=== PATIENT | female | born 1985 | race Caucasian/White ===

== ENCOUNTER 2016-07-20 08:48 | Emergency (ER) | payer OTHER ==
[~2016-07-20] VITALS: Wt 54.4 kg
[~2016-07-20 08:48] MED LIST: AMOXICILLIN500 MG PO; AMOXIL500 MG PO; ANAPROX DS550 MG PO; ATIVAN1 MG PO; AUGMENTIN 875 M1 TAB PO; BACTRIM DS 8001 TA1 PO; CEPHALEXIN500 M1 PO; CIPROFLOXACIN500 MG PO; CLARITIN10 MG PO; DIFLUCAN150 MG PO; DOXYCYCLINE HY100 M3 PO; FIORICET 325 MG1 TAB PO; KEFLEX500 MG PO; MACROBID100 M1 PO; MOTRIN800 MG PO; Motrin,Rufen800 MG PO; NEURONTIN100 MG PO; NKHM; PHENERGAN25 M1 PO; PYRIDIUM200 MG PO; TRAMADOL HCL50 MG PO; TRAZODONE50 MG PO; TRIMOX500 MG PO; VALIUM10 MG PO; VALIUM2 MG; VISTARIL25 M1 PO; VISTARIL25 M2 PO; XANAX0.5 MG PO; ZOFRAN4 MG PO; ZOLOFT20 MG/ML; ZOLOFT50 MG PO
[2016-07-20 09:08] VITALS: BP 114/72
[2016-07-20] MEDS ORDERED: CEPHALEXIN500 M1 PO (10:08)
[2016-07-20] MEDS ORDERED: TRIAMCINOLONE AC0.1% T (10:08)
[2016-07-20] MEDS ORDERED: PREDNISONE10 MG PO (10:08)
== END 2016-07-20 10:39 | disposition home or self-care (01) ==
LOC: ED 08:48
DX: K65.1 Peritoneal abscess (principal); L25.9 Unspecified contact dermatitis, unspecified cause; F17.200 Nicotine dependence, unspecified, uncomplicated

== ENCOUNTER 2016-10-03 17:03 | Emergency (ER) | payer OTHER ==
[~2016-10-03] VITALS: Wt 54.4 kg
[~2016-10-03 17:03] MED LIST changes: +PREDNISONE10 MG PO; +TRIAMCINOLONE AC0.1% T
[2016-10-03 18:20] LABS: BASO # 0.1 10*3/uL (0.0-0.1); BASO % 0.5 % (0.0-1.0); EOS # 0.5 10*3/uL (0.0-0.4); HEMATOCRIT 41.1 % (37.0-47.0); HEMOGLOBIN 13.8 g/dl (12.0-16.0); LYMPH % 30.1 % (27.0-41.0); MEAN CELL VOLUME 90.1 fl (81.0-99.0); MEAN CORPUSCULAR HGB 30.3 pg (27.0-31.0); MEAN CORPUSCULAR HGB CONC 33.6 g/dl (33.0-37.0); MEAN PLATELET VOLUME 11.3 fl (9.6-12.3); MONO # 0.7 10*3/uL (0.1-1.0); MONO % 7.3 % (3.0-9.0); NEUT # 5.7 10*3/uL (2.3-7.9); NEUT % 56.8 % (47.0-73.0); PLATELET COUNT AUTOMATED 225 10*3/uL (130-400); RED BLOOD COUNT 4.56 10*6/uL (4.10-5.10); RED CELL DISTRI WIDTH 14.4 % (0-14.5); WHITE BLOOD COUNT 10.1 10*3/uL (4.8-10.8)
[2016-10-03 18:36] LABS: ALBUMIN 3.7 gm/dl (3.1-4.5); ALKALINE PHOSPHATASE 85 U/L (45-117); BILIRUBIN, TOTAL 0.2 mg/dl (0.2-1.0); BUN 5 mg/dl (7-24); CARBON DIOXIDE 26 mmol/L (21-32); CHLORIDE 109 mmol/L (98-107); EST GLOM FILT AFRICAN AMERICAN > 60 ml/min; GLUCOSE 91 mg/dL (65-99); POTASSIUM 3.5 mmol/L (3.5-5.1); SGOT/AST 13 IU/L (3-35); SGPT/ALT 26 U/L (12-78); SODIUM 145 mmol/L (136-145); TOTAL PROTEIN 6.9 gm/dL (6.4-8.2)
== END 2016-10-03 19:04 | disposition home or self-care (01) ==
LOC: ED 17:03
PROVIDERS: Physician Assistant
DX: B27.90 Infectious mononucleosis, unspecified without complication (principal); F17.200 Nicotine dependence, unspecified, uncomplicated; Z79.899 Other long term (current) drug therapy

== ENCOUNTER 2017-02-24 21:44 | Emergency (ER) | payer OTHER ==
[~2017-02-24] VITALS: Ht 157.4 cm; Wt 56.7 kg
[2017-02-24 21:48] VITALS: BP 122/80
[2017-02-24] MEDS ORDERED: NAPROSYN500 MG PO (21:57)
[2017-02-24] MEDS ORDERED: KEFLEX500 M1 PO (21:57)
== END 2017-02-24 22:40 | disposition home or self-care (01) ==
LOC: ED 21:44
DX: S91.032A Puncture wound without foreign body, left ankle, initial encounter (principal); R03.0 Elevated blood-pressure reading, without diagnosis of hypertension; F17.200 Nicotine dependence, unspecified, uncomplicated; Z23 Encounter for immunization; Z88.8 Allergy status to other drugs, medicaments and biological substances; W10.9XXA Fall (on) (from) unspecified stairs and steps, initial encounter; Y93.89 Activity, other specified; Y92.89 Other specified places as the place of occurrence of the external cause; Y99.8 Other external cause status

== ENCOUNTER 2017-03-17 21:57 | Emergency (ER) | payer OTHER ==
[~2017-03-17] VITALS: Ht 157.4 cm; Wt 59.0 kg
[~2017-03-17 21:57] MED LIST changes: +KEFLEX500 M1 PO; +NAPROSYN500 MG PO
[2017-03-17 22:01] VITALS: BP 144/89
[2017-03-17 22:49] LABS: BASO # 0.1 10*3/uL (0.0-0.1); BASO % 0.4 % (0.0-1.0); EOS # 0.2 10*3/uL (0.0-0.4); EOS % 1.9 % (1.0-4.0); HEMOGLOBIN 14.4 g/dl (12.0-16.0); LYMPH # 2.5 10*3/uL (1.3-4.4); LYMPH % 20.3 % (27.0-41.0); MEAN CELL VOLUME 89.8 fl (81.0-99.0); MEAN CORPUSCULAR HGB 30.1 pg (27.0-31.0); MEAN CORPUSCULAR HGB CONC 33.5 g/dl (33.0-37.0); MEAN PLATELET VOLUME 10.9 fl (9.6-12.3); MONO # 0.6 10*3/uL (0.1-1.0); NEUT % 72.1 % (47.0-73.0); PLATELET COUNT AUTOMATED 307 10*3/uL (130-400); RED BLOOD COUNT 4.79 10*6/uL (4.10-5.10); RED CELL DISTRI WIDTH 14.6 % (0-14.5); WHITE BLOOD COUNT 12.5 10*3/uL (4.8-10.8)
[2017-03-17 23:04] LABS: ALKALINE PHOSPHATASE 125 U/L (45-117); BUN 3 mg/dl (7-24); CHLORIDE 107 mmol/L (98-107); CREATININE 0.75 mg/dL (0.55-1.02); POTASSIUM 3.1 mmol/L (3.5-5.1); SGOT/AST 15 IU/L (3-35); SGPT/ALT 16 U/L (12-78); SODIUM 141 mmol/L (136-145)
[2017-03-17] MEDS ORDERED: MEDROL DOSEPAK4 MG PO (23:14)
[2017-03-17] MEDS ORDERED: NORCO 5-325 TA1 EACH PO (23:14)
[2017-03-17] MEDS ORDERED: CLINDAMYCIN HC300 MG PO (23:14)
== END 2017-03-17 23:42 | disposition home or self-care (01) ==
LOC: ED 21:57
PROVIDERS: Physician Assistant
DX: L02.811 Cutaneous abscess of head [any part, except face] (principal); F17.200 Nicotine dependence, unspecified, uncomplicated

== ENCOUNTER 2017-06-13 15:38 | Emergency (ER) | payer OTHER ==
[~2017-06-13] VITALS: Wt 64.4 kg
[~2017-06-13 15:38] MED LIST changes: +CLINDAMYCIN HC300 MG PO; +MEDROL DOSEPAK4 MG PO; +NORCO 5-325 TA1 EACH PO
[2017-06-13 16:09] LABS: BILIRUBIN NEGATIVE (NEGATIVE); BLOOD 2+ (NEGATIVE); CLARITY CLEAR (CLEAR); COLOR YELLOW (YELLOW); GLUCOSE NEGATIVE (NEGATIVE); KETONE NEGATIVE (NEGATIVE); LEUKO ESTERASE 1+ (NEGATIVE); NITRITE NEGATIVE (NEGATIVE)
[2017-06-13 16:17] LABS: BACTERIA 1+; WBC 21-30 wbc/hpf (0-5)
[2017-06-13 16:36] LABS: HEMOGLOBIN 14.2 g/dl (12.0-16.0); MEAN CELL VOLUME 89.4 fl (81.0-99.0); MEAN CORPUSCULAR HGB 30.2 pg (27.0-31.0); MEAN CORPUSCULAR HGB CONC 33.8 g/dl (33.0-37.0); MEAN PLATELET VOLUME 11.4 fl (9.6-12.3); PLATELET COUNT AUTOMATED 182 10*3/uL (130-400); RED CELL DISTRI WIDTH 15.6 % (0-14.5); WHITE BLOOD COUNT 16.4 10*3/uL (4.8-10.8)
[2017-06-13 16:53] LABS: ALBUMIN 3.1 gm/dl (3.1-4.5); ALKALINE PHOSPHATASE 228 U/L (45-117); BUN 12 mg/dl (7-24); CHLORIDE 100 mmol/L (98-107); CREATININE 1.22 mg/dL (0.55-1.02); POTASSIUM 3.6 mmol/L (3.5-5.1); SGOT/AST 15 IU/L (3-35); SGPT/ALT 38 U/L (12-78); SODIUM 132 mmol/L (136-145)
[2017-06-13 17:01] LABS: PLATELET SUFFICIENCY NORMAL (NORMAL); POLYCHROMASIA SLIGHT; TOTAL CELLS COUNTED 100 #CELLS
[2017-06-13 19:19] VITALS: BP 104/66
[2017-06-13] MEDS ORDERED: CIPRO250 MG PO (19:21)
== END 2017-06-13 19:30 | disposition home or self-care (01) ==
LOC: ED 15:38
PROVIDERS: Nurse Practitioner Family
DX: N39.0 Urinary tract infection, site not specified (principal); F17.200 Nicotine dependence, unspecified, uncomplicated; Z79.899 Other long term (current) drug therapy

== ENCOUNTER 2018-11-18 21:49 | Emergency (ER) | payer OTHER ==
[~2018-11-18] VITALS: Ht 157.4 cm; Wt 61.2 kg
[~2018-11-18 21:49] MED LIST changes: +CIPRO250 MG PO
[2018-11-18 21:50] VITALS: BP 153/96
[2018-11-18 22:22] LABS: BILIRUBIN NEGATIVE (NEGATIVE); BLOOD NEGATIVE (NEGATIVE); CLARITY CLEAR (CLEAR); COLOR YELLOW (YELLOW); GLUCOSE NEGATIVE (NEGATIVE); KETONE NEGATIVE (NEGATIVE); LEUKO ESTERASE NEGATIVE (NEGATIVE); NITRITE NEGATIVE (NEGATIVE); PH 6.5 (5.0-9.0); SPECIFIC GRAVITY <= 1.005 (1.005-1.030); UROBILINOGEN 0.2 E.U./dl (0.2-1.0)
[2018-11-18 22:23] LABS: BASO % 0.3 % (0.0-1.0); EOS # 0.3 10*3/uL (0.0-0.4); EOS % 1.7 % (1.0-4.0); HEMATOCRIT 39.2 % (37.0-47.0); HEMOGLOBIN 13.9 g/dl (12.0-16.0); LYMPH # 3.3 10*3/uL (1.3-4.4); LYMPH % 22.5 % (27.0-41.0); MEAN CELL VOLUME 92.5 fl (81.0-99.0); MEAN CORPUSCULAR HGB 32.8 pg (27.0-31.0); MEAN CORPUSCULAR HGB CONC 35.5 g/dl (33.0-37.0); MEAN PLATELET VOLUME 11.3 fl (9.6-12.3); MONO # 0.9 10*3/uL (0.1-1.0); PLATELET COUNT AUTOMATED 251 10*3/uL (130-400); RED BLOOD COUNT 4.24 10*6/uL (4.10-5.10); RED CELL DISTRI WIDTH 13.6 % (0-14.5); WHITE BLOOD COUNT 14.5 10*3/uL (4.8-10.8)
[2018-11-18 22:34] LABS: EPITHELIAL CELLS 25-30
[2018-11-18 22:35] LABS: RBC 0-2 rbc/hpf (0-2)
[2018-11-18 22:44] LABS: ALBUMIN 3.5 gm/dl (3.1-4.5); ALKALINE PHOSPHATASE 71 U/L (45-117); BUN 8 mg/dl (7-24); CHLORIDE 106 mmol/L (98-107); CREATININE 0.67 mg/dL (0.55-1.02); LIPASE 121 U/L (73-393); POTASSIUM 3.5 mmol/L (3.5-5.1); SGOT/AST 19 IU/L (3-35); SGPT/ALT 19 U/L (12-78); SODIUM 139 mmol/L (136-145); TOTAL PROTEIN 7.1 gm/dL (6.4-8.2)
== END 2018-11-19 02:16 | disposition home or self-care (01) ==
LOC: ED 21:49
PROVIDERS: Emergency Medicine
DX: O26.891 Other specified pregnancy related conditions, first trimester (principal); R10.2 Pelvic and perineal pain; M54.5 Low back pain; R35.0 Frequency of micturition; F17.200 Nicotine dependence, unspecified, uncomplicated; Z3A.11 11 weeks gestation of pregnancy; Z79.899 Other long term (current) drug therapy; Z87.442 Personal history of urinary calculi

== ENCOUNTER 2018-12-05 13:16 | Emergency (ER) | payer OTHER ==
[~2018-12-05] VITALS: Ht 157.4 cm; Wt 62.6 kg
[2018-12-05 13:17] VITALS: BP 143/84
[2018-12-05 14:11] LABS: BASO % 0.2 % (0.0-1.0); EOS # 0.1 10*3/uL (0.0-0.4); EOS % 0.8 % (1.0-4.0); HEMATOCRIT 37.7 % (37.0-47.0); HEMOGLOBIN 13.1 g/dl (12.0-16.0); LYMPH # 1.8 10*3/uL (1.3-4.4); LYMPH % 12.3 % (27.0-41.0); MEAN CELL VOLUME 92.9 fl (81.0-99.0); MEAN CORPUSCULAR HGB 32.3 pg (27.0-31.0); MEAN CORPUSCULAR HGB CONC 34.7 g/dl (33.0-37.0); MEAN PLATELET VOLUME 11.5 fl (9.6-12.3); MONO # 0.5 10*3/uL (0.1-1.0); MONO % 3.6 % (3.0-9.0); NEUT # 11.9 10*3/uL (2.3-7.9); NEUT % 82.7 % (47.0-73.0); PLATELET COUNT AUTOMATED 243 10*3/uL (130-400); RED BLOOD COUNT 4.06 10*6/uL (4.10-5.10); RED CELL DISTRI WIDTH 13.6 % (0-14.5); WHITE BLOOD COUNT 14.4 10*3/uL (4.8-10.8)
== END 2018-12-05 15:50 | disposition home or self-care (01) ==
LOC: ED 13:16
PROVIDERS: Emergency Medicine
DX: O9A.211 Injury, poisoning and certain other consequences of external causes complicating pregnancy, first trimester (principal); R10.9 Unspecified abdominal pain; Z3A.12 12 weeks gestation of pregnancy; Z79.2 Long term (current) use of antibiotics; Z79.899 Other long term (current) drug therapy; V49.59XA Passenger injured in collision with other motor vehicles in traffic accident, initial encounter; Y93.89 Activity, other specified; Y92.488 Other paved roadways as the place of occurrence of the external cause; Y99.8 Other external cause status

== ENCOUNTER 2020-11-01 00:18 | Inpatient (IN) | payer OTHER ==
[~2020-11-01] VITALS: Ht 157.4 cm; Wt 65.9 kg
[2020-11-01] VITALS (8 sets, daily range): BP systolic 102–120; BP diastolic 60–78
[2020-11-01 00:55] LABS: HEMATOCRIT 40.3 % (37.0-47.0); MEAN CELL VOLUME 87.2 fl (81.0-99.0); MEAN CORPUSCULAR HGB 29.2 pg (27.0-31.0); MEAN CORPUSCULAR HGB CONC 33.5 g/dl (33.0-37.0); MEAN PLATELET VOLUME 11.2 fl (9.6-12.3); PLATELET COUNT AUTOMATED 183 10*3/uL (130-400); RED BLOOD COUNT 4.62 10*6/uL (4.10-5.10); RED CELL DISTRI WIDTH 15.8 % (0-14.5); WHITE BLOOD COUNT 19.1 10*3/uL (4.8-10.8)
[2020-11-01 01:18] LABS: ALBUMIN 2.9 gm/dl (3.1-4.5); ALKALINE PHOSPHATASE 216 U/L (45-117); BUN 7 mg/dl (7-24); CHLORIDE 106 mmol/L (98-107); CREATININE 1.15 mg/dL (0.55-1.02); POTASSIUM 2.7 mmol/L (3.5-5.1); SGOT/AST 16 IU/L (3-35); SGPT/ALT 40 U/L (12-78); SODIUM 137 mmol/L (136-145); TOTAL PROTEIN 7.1 gm/dL (6.4-8.2)
[2020-11-01 01:21] LABS: TOTAL CELLS COUNTED 100 #CELLS
[2020-11-01 01:22] LABS: OVALOCYTES FEW
[2020-11-01 01:23] LABS: BURR CELLS FEW; PLATELET SUFFICIENCY NORMAL (NORMAL)
[2020-11-01 02:02] LABS: BILIRUBIN 2+ (Negative); CLARITY Turbid (Clear); COLOR Red (Yellow); GLUCOSE Negative (Negative); KETONE Trace (Negative)
[2020-11-01 02:03] LABS: BLOOD 3+ (Negative)
[2020-11-01 02:04] LABS: NITRITE Positive (Negative)
[2020-11-01 02:05] LABS: LEUKO ESTERASE Trace (Negative); RBC TNTC rbc/hpf (0-2)
[2020-11-01 04:41] LABS: BASO % 0.2 % (0.0-1.0); EOS # 0.1 10*3/uL (0.0-0.4); EOS % 0.7 % (1.0-4.0); HEMATOCRIT 35.3 % (37.0-47.0); LYMPH # 1.6 10*3/uL (1.3-4.4); LYMPH % 9.1 % (27.0-41.0); MEAN CELL VOLUME 87.6 fl (81.0-99.0); MEAN CORPUSCULAR HGB 29.3 pg (27.0-31.0); MEAN CORPUSCULAR HGB CONC 33.4 g/dl (33.0-37.0); MEAN PLATELET VOLUME 12.1 fl (9.6-12.3); MONO # 2.2 10*3/uL (0.1-1.0); MONO % 12.5 % (3.0-9.0); NEUT # 13.3 10*3/uL (2.3-7.9); NEUT % 76.9 % (47.0-73.0); PLATELET COUNT AUTOMATED 164 10*3/uL (130-400); RED BLOOD COUNT 4.03 10*6/uL (4.10-5.10); RED CELL DISTRI WIDTH 15.8 % (0-14.5); WHITE BLOOD COUNT 17.3 10*3/uL (4.8-10.8)
[2020-11-01 05:07] LABS: BURR CELLS FEW; OVALOCYTES FEW; PLATELET SUFFICIENCY NORMAL (NORMAL); TOTAL CELLS COUNTED 100 #CELLS
[2020-11-01 05:11] LABS: ALBUMIN 2.3 gm/dl (3.1-4.5); ALKALINE PHOSPHATASE 200 U/L (45-117); BUN 7 mg/dl (7-24); CHLORIDE 112 mmol/L (98-107); CREATININE 0.99 mg/dL (0.55-1.02); POTASSIUM 3.3 mmol/L (3.5-5.1); SGOT/AST 15 IU/L (3-35); SGPT/ALT 32 U/L (12-78); SODIUM 140 mmol/L (136-145)
[2020-11-01] MEDS ORDERED: HYDROXYZINE HCL25 MG PO (05:20)
[2020-11-01] MEDS ORDERED: AMITRIPTYLINE25 MG PO (05:20)
[2020-11-01] MEDS ORDERED: BUPROPION HYDR150 M1 PO (05:21)
[2020-11-01] MEDS ORDERED: XANAX XR0.5 MG PO (05:21)
[2020-11-01] MEDS ORDERED: LATU40TA PO (05:35)
[2020-11-02 00:47] VITALS: BP 115/71
[2020-11-02 06:08] LABS: BUN 6 mg/dl (7-24); CHLORIDE 112 mmol/L (98-107); HEMATOCRIT 31.6 % (37.0-47.0); MEAN CELL VOLUME 88.8 fl (81.0-99.0); MEAN CORPUSCULAR HGB 29.5 pg (27.0-31.0); MEAN CORPUSCULAR HGB CONC 33.2 g/dl (33.0-37.0); MEAN PLATELET VOLUME 12.5 fl (9.6-12.3); PLATELET COUNT AUTOMATED 166 10*3/uL (130-400); POTASSIUM 3.7 mmol/L (3.5-5.1); RED BLOOD COUNT 3.56 10*6/uL (4.10-5.10); RED CELL DISTRI WIDTH 16.3 % (0-14.5); SODIUM 139 mmol/L (136-145)
[2020-11-02 06:58] LABS: TOTAL CELLS COUNTED 100 #CELLS
[2020-11-02 06:59] LABS: BURR CELLS FEW; PLATELET SUFFICIENCY NORMAL (NORMAL); TOXIC GRANULATION SLIGHT
[2020-11-02 08:00] VITALS: BP 93/64
[2020-11-02 12:00] VITALS: BP 101/60
[2020-11-02 16:00] VITALS: BP 117/81
[2020-11-02 20:00] VITALS: BP 129/79
[2020-11-03] VITALS: BP 134/83
[2020-11-03 06:13] LABS: BASO % 0.1 % (0.0-1.0); EOS # 0.2 10*3/uL (0.0-0.4); EOS % 1.6 % (1.0-4.0); LYMPH # 1.9 10*3/uL (1.3-4.4); LYMPH % 12.9 % (27.0-41.0); MEAN CORPUSCULAR HGB 29.5 pg (27.0-31.0); MEAN CORPUSCULAR HGB CONC 33.9 g/dl (33.0-37.0); MEAN PLATELET VOLUME 11.1 fl (9.6-12.3); MONO # 1.1 10*3/uL (0.1-1.0); MONO % 7.5 % (3.0-9.0); NEUT # 11.2 10*3/uL (2.3-7.9); NEUT % 76.8 % (47.0-73.0); PLATELET COUNT AUTOMATED 184 10*3/uL (130-400); RED BLOOD COUNT 3.22 10*6/uL (4.10-5.10); RED CELL DISTRI WIDTH 16.5 % (0-14.5); WHITE BLOOD COUNT 14.5 10*3/uL (4.8-10.8)
[2020-11-03 06:27] LABS: ALKALINE PHOSPHATASE 205 U/L (45-117); BUN 5 mg/dl (7-24); CHLORIDE 112 mmol/L (98-107); CREATININE 1.05 mg/dL (0.55-1.02); POTASSIUM 3.3 mmol/L (3.5-5.1); SGOT/AST 9 IU/L (3-35); SGPT/ALT 21 U/L (12-78); SODIUM 141 mmol/L (136-145); TOTAL PROTEIN 5.3 gm/dL (6.4-8.2)
[2020-11-03 08:00] VITALS: BP 100/64
[2020-11-03 12:00] VITALS: BP 140/85
[2020-11-03 16:00] VITALS: BP 127/76; BP 146/48
[2020-11-03 20:00] VITALS: BP 142/90
[2020-11-04] VITALS: BP 140/89
[2020-11-04 01:30] VITALS: BP 138/82
[2020-11-04 06:51] LABS: HEMATOCRIT 28.9 % (37.0-47.0); MEAN CELL VOLUME 87.3 fl (81.0-99.0); MEAN CORPUSCULAR HGB 29.6 pg (27.0-31.0); MEAN CORPUSCULAR HGB CONC 33.9 g/dl (33.0-37.0); MEAN PLATELET VOLUME 10.9 fl (9.6-12.3); PLATELET COUNT AUTOMATED 203 10*3/uL (130-400); RED BLOOD COUNT 3.31 10*6/uL (4.10-5.10); RED CELL DISTRI WIDTH 16.5 % (0-14.5); WHITE BLOOD COUNT 9.8 10*3/uL (4.8-10.8)
[2020-11-04 07:46] LABS: ALKALINE PHOSPHATASE 228 U/L (45-117); BUN 5 mg/dl (7-24); CHLORIDE 111 mmol/L (98-107); CREATININE 0.95 mg/dL (0.55-1.02); POTASSIUM 3.4 mmol/L (3.5-5.1); SGOT/AST 11 IU/L (3-35); SGPT/ALT 19 U/L (12-78); SODIUM 141 mmol/L (136-145); TOTAL PROTEIN 5.7 gm/dL (6.4-8.2)
[2020-11-04 07:54] LABS: PLATELET SUFFICIENCY NORMAL (NORMAL); TOTAL CELLS COUNTED 100 #CELLS
[2020-11-04 08:00] VITALS: BP 128/86
[2020-11-04 12:00] VITALS: BP 123/83
[2020-11-04 16:00] VITALS: BP 152/91
[2020-11-04 20:00] VITALS: BP 137/87
[2020-11-05] VITALS: BP 135/78
[2020-11-05 06:23] LABS: BASO % 0.2 % (0.0-1.0); CHLORIDE 112 mmol/L (98-107); EOS # 0.5 10*3/uL (0.0-0.4); HEMATOCRIT 32.2 % (37.0-47.0); LYMPH # 2.3 10*3/uL (1.3-4.4); LYMPH % 25.4 % (27.0-41.0); MEAN CELL VOLUME 87.5 fl (81.0-99.0); MEAN CORPUSCULAR HGB 29.3 pg (27.0-31.0); MEAN CORPUSCULAR HGB CONC 33.5 g/dl (33.0-37.0); MEAN PLATELET VOLUME 11.2 fl (9.6-12.3); MONO # 0.8 10*3/uL (0.1-1.0); MONO % 8.7 % (3.0-9.0); NEUT # 5.4 10*3/uL (2.3-7.9); NEUT % 59.5 % (47.0-73.0); POTASSIUM 3.2 mmol/L (3.5-5.1); RED BLOOD COUNT 3.68 10*6/uL (4.10-5.10); RED CELL DISTRI WIDTH 16.8 % (0-14.5); SODIUM 142 mmol/L (136-145)
[2020-11-05 06:25] LABS: PLATELET COUNT AUTOMATED 285 10*3/uL (130-400)
[2020-11-05 06:30] LABS: BUN 7 mg/dl (7-24); CREATININE 1.02 mg/dL (0.55-1.02)
[2020-11-05 08:00] VITALS: BP 129/90
[2020-11-05] MEDS ORDERED: SEPTDS PO (11:33)
[2020-11-05 12:00] VITALS: BP 126/82
[2020-11-05 16:00] VITALS: BP 138/90
== END 2020-11-05 17:50 | disposition home or self-care (01) | DRG 871 ==
LOC: ED 00:18 → EDHOLD 02:48 → 4E 02:48
PROVIDERS: Hospitalist; Internal Medicine; Registered Nurse; Student in an Organized Health Care Education/Training Program; ADMIT Student in an Organized Health Care Education/Training Program; ATTEND Student in an Organized Health Care Education/Training Program
PROC: 05HC33Z Insertion of Infusion Device into Left Basilic Vein, Percutaneous Approach (ICD-10-PCS; principal; 2020-11-02)
PROC: B54NZZA Ultrasonography of Left Upper Extremity Veins, Guidance (ICD-10-PCS; 2020-11-02)
DX: A41.9 Sepsis, unspecified organism (principal); N17.0 Acute kidney failure with tubular necrosis; E44.0 Moderate protein-calorie malnutrition; E87.2 Acidosis; N13.6 Pyonephrosis; E87.6 Hypokalemia; F41.9 Anxiety disorder, unspecified; N18.31 Chronic kidney disease, stage 3a; R31.9 Hematuria, unspecified; R65.20 Severe sepsis without septic shock; R73.9 Hyperglycemia, unspecified; B96.20 Unspecified Escherichia coli [E. coli] as the cause of diseases classified elsewhere; F17.200 Nicotine dependence, unspecified, uncomplicated; Z80.9 Family history of malignant neoplasm, unspecified; Z82.49 Family history of ischemic heart disease and other diseases of the circulatory system; Z79.899 Other long term (current) drug therapy; Z71.6 Tobacco abuse counseling; Z68.26 Body mass index [BMI] 26.0-26.9, adult

== ENCOUNTER 2020-11-14 14:09 | Emergency (ER) | payer OTHER ==
[~2020-11-14] VITALS: Wt 56.7 kg
[~2020-11-14 14:09] MED LIST changes: +AMITRIPTYLINE25 MG PO; +BUPROPION HYDR150 M1 PO; +HYDROXYZINE HCL25 MG PO; +LATU40TA PO; +SEPTDS PO; +XANAX XR0.5 MG PO
[2020-11-14 14:26] VITALS: BP 117/68
[2020-11-14] MEDS ORDERED: HYDROCODONE-AC1 EAC1 PO (15:46)
== END 2020-11-14 15:57 | disposition home or self-care (01) ==
LOC: ED 14:09
DX: S82.62XA Displaced fracture of lateral malleolus of left fibula, initial encounter for closed fracture (principal); Z90.89 Acquired absence of other organs; Z79.899 Other long term (current) drug therapy; Z88.5 Allergy status to narcotic agent; X58.XXXA Exposure to other specified factors, initial encounter; Y93.89 Activity, other specified; Y92.89 Other specified places as the place of occurrence of the external cause; Y99.9 Unspecified external cause status

== ENCOUNTER 2021-08-14 10:57 | Emergency (ER) | payer OTHER ==
[~2021-08-14] VITALS: Ht 157.4 cm; Wt 56.7 kg
[~2021-08-14 10:57] MED LIST changes: +HYDROCODONE-AC1 EAC1 PO
[2021-08-14 11:26] VITALS: BP 117/81
== END 2021-08-14 12:10 | disposition home or self-care (01) ==
LOC: ED 10:57
DX: S61.217A Laceration without foreign body of left little finger without damage to nail, initial encounter (principal); G43.909 Migraine, unspecified, not intractable, without status migrainosus; F17.210 Nicotine dependence, cigarettes, uncomplicated; Z90.89 Acquired absence of other organs; Z98.890 Other specified postprocedural states; Z88.8 Allergy status to other drugs, medicaments and biological substances; Z79.899 Other long term (current) drug therapy; W26.8XXA Contact with other sharp object(s), not elsewhere classified, initial encounter; Y93.89 Activity, other specified; Y92.89 Other specified places as the place of occurrence of the external cause; Y99.8 Other external cause status

== ENCOUNTER 2021-10-17 12:49 | Emergency (ER) | payer OTHER ==
[~2021-10-17] VITALS: Ht 157.4 cm; Wt 61.2 kg
[2021-10-17 12:58] VITALS: BP 115/80
[2021-10-17] MEDS ORDERED: IBUPROFEN600 MG PO (16:40)
== END 2021-10-17 16:19 | disposition home or self-care (01) ==
LOC: ED 12:49
DX: S50.01XA Contusion of right elbow, initial encounter (principal); S40.011A Contusion of right shoulder, initial encounter; Z88.8 Allergy status to other drugs, medicaments and biological substances; Z79.899 Other long term (current) drug therapy; Z90.89 Acquired absence of other organs; Z98.890 Other specified postprocedural states; Z87.891 Personal history of nicotine dependence; V49.9XXA Car occupant (driver) (passenger) injured in unspecified traffic accident, initial encounter; Y93.89 Activity, other specified; Y92.89 Other specified places as the place of occurrence of the external cause; Y99.8 Other external cause status

== ENCOUNTER 2021-10-25 17:55 | Emergency (ER) | payer OTHER ==
[~2021-10-25] VITALS: Ht 157.4 cm; Wt 61.2 kg
[~2021-10-25 17:55] MED LIST changes: +IBUPROFEN600 MG PO
[2021-10-25 18:25] VITALS: BP 151/99
== END 2021-10-25 21:35 | disposition home or self-care (01) ==
LOC: ED 17:55
DX: H53.8 Other visual disturbances (principal); G43.909 Migraine, unspecified, not intractable, without status migrainosus; Z88.8 Allergy status to other drugs, medicaments and biological substances; Z79.899 Other long term (current) drug therapy; Z90.89 Acquired absence of other organs; Z98.890 Other specified postprocedural states; F17.200 Nicotine dependence, unspecified, uncomplicated

== ENCOUNTER 2022-09-07 19:09 | Emergency (ER) | payer OTHER ==
[~2022-09-07] VITALS: Ht 157.4 cm; Wt 59.0 kg
[2022-09-07 19:18] VITALS: BP 129/97
[2022-09-07 19:43] LABS: BASO % 0.4 % (0.0-1.0); EOS # 0.2 10*3/uL (0.0-0.4); EOS % 2.3 % (1.0-4.0); HEMATOCRIT 43.2 % (37.0-47.0); LYMPH # 2.8 10*3/uL (1.3-4.4); LYMPH % 39.3 % (27.0-41.0); MEAN CELL VOLUME 86.9 fl (81.0-99.0); MEAN CORPUSCULAR HGB CONC 34.5 g/dl (33.0-37.0); MEAN PLATELET VOLUME 10.8 fl (9.6-12.3); MONO # 0.5 10*3/uL (0.1-1.0); MONO % 6.5 % (3.0-9.0); NEUT # 3.6 10*3/uL (2.3-7.9); NEUT % 51.2 % (47.0-73.0); PLATELET COUNT AUTOMATED 298 10*3/uL (130-400); RED BLOOD COUNT 4.97 10*6/uL (4.10-5.10); RED CELL DISTRI WIDTH 15.2 % (0-14.5)
[2022-09-07 19:59] LABS: ALKALINE PHOSPHATASE 101 U/L (46-116); CHLORIDE 101 mmol/L (98-107); POTASSIUM 2.6 mmol/L (3.4-5.1); SGPT/ALT 16 U/L (10-49); TOTAL PROTEIN 7.5 gm/dL (6.0-8.0)
[2022-09-07 20:13] LABS: BUN < 5 mg/dl (9-23)
[2022-09-07] MEDS ORDERED: K-TAB20 MEQ PO (20:23)
== END 2022-09-07 20:51 | disposition home or self-care (01) ==
LOC: ED 19:09
PROVIDERS: Emergency Medicine
DX: E87.6 Hypokalemia (principal); R00.2 Palpitations; R53.1 Weakness; Z88.8 Allergy status to other drugs, medicaments and biological substances; Z79.899 Other long term (current) drug therapy; Z98.890 Other specified postprocedural states; Z90.89 Acquired absence of other organs; Z87.891 Personal history of nicotine dependence

== ENCOUNTER 2023-08-16 11:18 | Emergency (ER) | payer SELFPAY ==
[~2023-08-16] VITALS: Wt 61.2 kg
[~2023-08-16 11:18] MED LIST changes: +K-TAB20 MEQ PO
[2023-08-16 12:04] LABS: BASO % 0.3 % (0.0-1.0); EOS # 0.2 10*3/uL (0.0-0.4); EOS % 1.3 % (1.0-4.0); HEMATOCRIT 41.7 % (37.0-47.0); LYMPH # 2.3 10*3/uL (1.3-4.4); LYMPH % 16.7 % (27.0-41.0); MEAN CELL VOLUME 92.1 fl (81.0-99.0); MEAN CORPUSCULAR HGB 30.7 pg (27.0-31.0); MEAN CORPUSCULAR HGB CONC 33.3 g/dl (33.0-37.0); MEAN PLATELET VOLUME 11.1 fl (9.6-12.3); MONO # 1.2 10*3/uL (0.1-1.0); MONO % 8.8 % (3.0-9.0); NEUT # 9.9 10*3/uL (2.3-7.9); NEUT % 72.5 % (47.0-73.0); PLATELET COUNT AUTOMATED 202 10*3/uL (130-400); RED BLOOD COUNT 4.53 10*6/uL (4.10-5.10); RED CELL DISTRI WIDTH 13.5 % (0-14.5); WHITE BLOOD COUNT 13.6 10*3/uL (4.8-10.8)
[2023-08-16 12:13] LABS: ACT PARTIAL THROMBO TIME 32.5 SECONDS (20.0-32.1)
[2023-08-16 12:24] LABS: ALKALINE PHOSPHATASE 119 U/L (46-116); BUN < 5 mg/dl (9-23); CHLORIDE 106 mmol/L (98-107); LIPASE 29 U/L (12-53); POTASSIUM 3.2 mmol/L (3.4-5.1); SGPT/ALT 36 U/L (5-49); TOTAL PROTEIN 7.1 gm/dL (6.0-8.0)
[2023-08-16 12:44] LABS: BILIRUBIN Negative (Negative); BLOOD Negative (Negative); CLARITY Clear (Clear); COLOR Yellow (Yellow); GLUCOSE Negative (Negative); KETONE Negative (Negative); LEUKO ESTERASE Trace (Negative); NITRITE Negative (Negative); PH 7.5 (4.5-8.0); SPECIFIC GRAVITY <= 1.005 (1.001-1.030)
[2023-08-16 12:57] LABS: BACTERIA 1+; RBC 0-2 rbc/hpf (0-2)
[2023-08-16 12:58] LABS: EPITHELIAL CELLS 0-2
[2023-08-16 14:12] VITALS: BP 108/76
[2023-08-16] MEDS ORDERED: CIPRO500 MG PO (14:16)
[2023-08-16] MEDS ORDERED: Motrin,Rufen800 MG PO (14:17)
== END 2023-08-16 14:43 | disposition home or self-care (01) ==
LOC: ED 11:18
PROVIDERS: Nurse Practitioner Family
DX: N12 Tubulo-interstitial nephritis, not specified as acute or chronic (principal); E87.6 Hypokalemia; R73.9 Hyperglycemia, unspecified; F41.9 Anxiety disorder, unspecified; G43.909 Migraine, unspecified, not intractable, without status migrainosus; F31.9 Bipolar disorder, unspecified; F17.200 Nicotine dependence, unspecified, uncomplicated; Z88.8 Allergy status to other drugs, medicaments and biological substances; Z98.890 Other specified postprocedural states; Z90.89 Acquired absence of other organs

== ENCOUNTER 2023-12-13 05:44 | Emergency (ER) | payer SELFPAY ==
[~2023-12-13] VITALS: Ht 157.4 cm; Wt 56.7 kg
[~2023-12-13 05:44] MED LIST changes: +CIPRO500 MG PO
[2023-12-13 05:54] VITALS: BP 133/82
[2023-12-13] MEDS ORDERED: ACETAMINOPHEN 325 MG TAB PO ONE (06:40)
[2023-12-13] MEDS ORDERED: LIDOCAINE 1 EA PATCH T ONE (09:10)
[2023-12-13] MEDS ORDERED: IBUPROFEN 400 MG TAB PO ONE (09:10)
[2023-12-13] MEDS ORDERED: ASPERCREME LID1 EACH T (10:22)
[2023-12-13] MEDS ORDERED: TYLENOL EXTRA500 MG PO (10:22)
[2023-12-13] MEDS ORDERED: Motrin,Rufen400 MG PO (10:22)
== END 2023-12-13 10:14 | disposition home or self-care (01) ==
LOC: ED 05:44
DX: S93.401A Sprain of unspecified ligament of right ankle, initial encounter (principal); S20.211A Contusion of right front wall of thorax, initial encounter; S99.921A Unspecified injury of right foot, initial encounter; F17.200 Nicotine dependence, unspecified, uncomplicated; Z88.8 Allergy status to other drugs, medicaments and biological substances; Z79.899 Other long term (current) drug therapy; Z87.42 Personal history of other diseases of the female genital tract; Z90.89 Acquired absence of other organs; W10.8XXA Fall (on) (from) other stairs and steps, initial encounter; Y93.89 Activity, other specified; Y92.89 Other specified places as the place of occurrence of the external cause; Y99.8 Other external cause status

== ENCOUNTER 2024-02-14 19:12 | Emergency (ER) | payer SELFPAY ==
[~2024-02-14] VITALS: Ht 157.4 cm; Wt 56.7 kg
[~2024-02-14 19:12] MED LIST changes: +ASPERCREME LID1 EACH T; +Motrin,Rufen400 MG PO; +TYLENOL EXTRA500 MG PO
[2024-02-14 19:42] VITALS: BP 148/72
[2024-02-14] MEDS ORDERED: LORazepam 1 MG TAB PO ONE (19:50)
[2024-02-14] MEDS ORDERED: VISTARIL25 MG PO (20:11)
== END 2024-02-14 20:18 | disposition home or self-care (01) ==
LOC: ED 19:12
DX: F41.0 Panic disorder [episodic paroxysmal anxiety] (principal); F31.9 Bipolar disorder, unspecified; F17.200 Nicotine dependence, unspecified, uncomplicated; Z88.8 Allergy status to other drugs, medicaments and biological substances; Z79.899 Other long term (current) drug therapy; Z87.42 Personal history of other diseases of the female genital tract; Z90.89 Acquired absence of other organs

== ENCOUNTER 2024-03-29 20:46 | Emergency (ER) | payer SELFPAY ==
[~2024-03-29] VITALS: Ht 157.4 cm; Wt 54.4 kg
[~2024-03-29 20:46] MED LIST changes: +VISTARIL25 MG PO
[2024-03-29 21:15] VITALS: BP 144/86
[2024-03-29] MEDS ORDERED: Ondansetron Hydrochloride 4 MG/2 ML VIAL IV ONE (21:45)
[2024-03-29] MEDS ORDERED: SODIUM CHLORIDE 0.9% 1,000 ML IV ONE (21:45)
[2024-03-29] MEDS ORDERED: diphenhydrAMINE hydrochloride 50 MG/ML VIAL IV ONE (21:45)
[2024-03-29] MEDS ORDERED: methylPREDNISolone sod succ 1,000 MG/16 ML VIAL IM ONE (21:45)
[2024-03-29] MEDS ORDERED: Ketorolac Tromethamine 15 MG/ML VIAL IV ONE (21:45)
[2024-03-29] MEDS ORDERED: methylPREDNISolone sod succ 125 MG VIAL IM ONE (21:50)
== END 2024-03-30 00:07 | disposition home or self-care (01) ==
LOC: ED 20:46
DX: G43.909 Migraine, unspecified, not intractable, without status migrainosus (principal); R11.0 Nausea; R42 Dizziness and giddiness; F41.9 Anxiety disorder, unspecified; F31.9 Bipolar disorder, unspecified; Z88.8 Allergy status to other drugs, medicaments and biological substances; Z90.89 Acquired absence of other organs; Z98.890 Other specified postprocedural states; F17.200 Nicotine dependence, unspecified, uncomplicated

== ENCOUNTER 2024-10-16 17:33 | Emergency (ER) | payer SELFPAY ==
[~2024-10-16] VITALS: Ht 157.4 cm; Wt 56.7 kg
[2024-10-16 17:46] VITALS: BP 156/92
[2024-10-16] MEDS ORDERED: Ketorolac Tromethamine 30 MG/ML VIAL IV ONE (17:55)
[2024-10-16] MEDS ORDERED: SODIUM CHLORIDE 0.9% 1,000 ML IV ONE (17:55)
[2024-10-16] MEDS ORDERED: Metoclopramide Hydrochloride 10 MG/2 ML VIAL IV ONE (18:00)
[2024-10-16] MEDS ORDERED: diphenhydrAMINE hydrochloride 50 MG/ML VIAL IV ONE (18:00)
[2024-10-16] MEDS ORDERED: Dexamethasone Sodium Phospha 10 MG/1 ML VIAL IV ONE (18:55)
== END 2024-10-16 19:09 | disposition home or self-care (01) ==
LOC: ED 17:33
DX: G43.909 Migraine, unspecified, not intractable, without status migrainosus (principal); F31.9 Bipolar disorder, unspecified; F41.9 Anxiety disorder, unspecified; Z79.899 Other long term (current) drug therapy; Z90.89 Acquired absence of other organs; Z98.890 Other specified postprocedural states

== ENCOUNTER 2024-11-21 08:04 | Emergency (ER) | payer SELFPAY ==
[~2024-11-21] VITALS: Wt 59.0 kg
[2024-11-21 08:10] VITALS: BP 125/84
[2024-11-21] MEDS ORDERED: LISSAMINE GREEN 1.5 MG STRIP OP ONE (08:20)
[2024-11-21] MEDS ORDERED: CIPROFLOXACIN H10 ML OPH (08:36)
== END 2024-11-21 08:48 | disposition home or self-care (01) ==
LOC: ED 08:04
DX: S05.8X2A Other injuries of left eye and orbit, initial encounter (principal); F17.200 Nicotine dependence, unspecified, uncomplicated; Z88.8 Allergy status to other drugs, medicaments and biological substances; Z87.42 Personal history of other diseases of the female genital tract; Z90.89 Acquired absence of other organs; X58.XXXA Exposure to other specified factors, initial encounter; Y93.89 Activity, other specified; Y92.89 Other specified places as the place of occurrence of the external cause; Y99.8 Other external cause status